=== PATIENT | female | born 1970 | race Caucasian/White ===

== ENCOUNTER 2017-07-29 21:24 | Emergency (ER) | payer OTHER ==
[2017-07-29 21:42] VITALS: BP 130/83
[2017-07-29] MEDS ORDERED: METOCLOPRAMIDE HCL ORAL SOLN 10 MG/10 ML UDCUP PO ONE (22:07)
[2017-07-29] MEDS ORDERED: LIDOCAINE 2% VISCOUS SOLN 20 ML UDCUP PO ONE (22:07)
[2017-07-29] MEDS ORDERED: SUCRALFATE 1 GM TABLET PO ONE (22:07)
[2017-07-29] MEDS ORDERED: MAG HYDROX/AL HYDROX/SIMETH SUSP 30 ML UDCUP PO ONE (22:07)
--- NOTE | 2017-07-29 22:17 | ER Document Report ---
ED General - General Chief Complaint: Chest Pain Stated Complaint: CHEST PAIN/DIFFICULTY BREATHING Time Seen by Provider: 07/29/17 21:52 Notes: Patient is a 47-year-old female that comes to the ED for chief complaint of symptoms of discomfort in her chest, upper abdomen, and throat that have been going on intermittently for the past 8 days, she states that occasionally she will have a coughing episode, she has vomited once or twice, she has discomfort that increases when she eats. She reports sensations of shortness of breath with the discomfort. She has been seen twice by her primary care and 4 times by [facility] over the past 8 days reportedly, she has had multiple laboratory evaluations and she has even had two CTA scans of the chest performed. She may really patient is already on Soma, oxycodone, and baclofen, she has been given medication is for her symptoms including Benadryl, Vistaril, Ativan, Protonix. She has had a gastric bypass and ventral hernia repair. Patient denies . She denies smoking, alcohol, [place] history. TRAVEL OUTSIDE OF THE [place] IN LAST 30 DAYS: No - Related Data Allergies/Adverse Reactions: meperidine HCl [From Demerol] Allergy (Severe, Verified 08/13/15 16:14) Anaphylaxis clindamycin [Clindamycin] Allergy (Intermediate, Verified 08/13/15 16:14) Rash, swelling Adhesives Allergy (Severe, Uncoded 08/13/15 16:14) Breaks down skin, itching Past Medical History - General Information source: Patient - Social History Smoking Status: Never Smoker Frequency of alcohol use: None Drug Abuse: None Lives with: Family Family History: Reviewed & Not Pertinent - Past Medical History Cardiac Medical History: Denies: Hx Coronary Artery Disease, Hx Heart Attack, Hx Hypertension Pulmonary Medical History: Denies: Hx Asthma, Hx Bronchitis, Hx COPD, Hx Pneumonia Neurological Medical History: Denies: Hx Cerebrovascular Accident, Hx Seizures Musculoskeltal Medical History: Reports Hx Arthritis - Lt hip Psychiatric Medical History: Reports: Hx Anxiety Past Surgical History: Reports: Hx Abdominal Surgery - tummy tuck and revision of tummy tuck, Hx Section - x5, Hx Cholecystectomy, Hx Gastric Bypass Surgery - Laparoscopic gastric bypass with Jeovany-en-Y in 2002, Hx Herniorrhaphy, Hx Orthopedic Surgery - Lumbar fusion. Spinal stimulator 02/18/2015., Hx Tubal Ligation - Immunizations Hx Diphtheria, Pertussis, Tetanus Vaccination: Yes - Unsure when Review of Systems - Review of Systems Constitutional: No symptoms reported EENT: See HPI Cardiovascular: See HPI Respiratory: See HPI Gastrointestinal: See HPI Genitourinary: No symptoms reported Female Genitourinary: No symptoms reported Musculoskeletal: No symptoms reported Skin: No symptoms reported Hematologic/Lymphatic: No symptoms reported Neurological/Psychological: No symptoms reported Physical Exam - Vital signs Vitals: Temp Pulse Resp BP Pulse Ox 98.1 F 82 18 130/83 H 98 07/29/17 21:41 07/29/17 21:41 07/29/17 21:41 07/29/17 21:41 07/29/17 21:41 Interpretation: Normal - General General appearance: Anxious - Patient sitting straight up in the bed, speaks anxiously In distress: None - HEENT Head: Normocephalic, Atraumatic Eyes: Normal Conjunctiva: Normal Extraocular movements intact: Yes Eyelashes: Normal Pupils: PERRL Nasal: Normal Mouth/Lips: Normal Mucous membranes: Normal Pharynx: Normal Neck: Normal - Respiratory Respiratory status: No respiratory distress. No: Respiratory distress, Labored , Tachypnea Chest status: Nontender. No: Tender Breath sounds: Normal. No: Decreased air movement, Wheezing Chest palpation: Normal - Cardiovascular Rhythm: Regular. No: Tachycardia Heart sounds: Normal auscultation, S1 appreciated, S2 appreciated Murmur: No Normal capillary refill: Yes - Abdominal Inspection: Normal Distension: No distension Bowel sounds: Normal Tenderness: Tender - There is very mild epigastric tenderness, remaining abdomen is soft and benign. No: Guarding - Back Back: Normal, Nontender. No: Tender - Extremities General upper extremity: Normal inspection, Nontender, Normal ROM, Normal strength General lower extremity: Normal inspection, Nontender, Normal ROM, Normal strength. No: Edema - Neurological Neuro grossly intact: Yes Cognition: Normal Orientation: AAOx4 [place] Coma Scale Eye Opening: Spontaneous [place] Coma Scale Verbal: Oriented [place] Coma Scale Motor: Obeys Commands [place] Coma Scale Total: 15 Speech: Normal Motor strength normal: LUE, RUE, LLE, RLE Sensory: Normal - Psychological Associated symptoms: Anxious - Anxious but she is able to be reassured - Skin Skin Temperature: Warm Skin Moisture: Dry Skin Color: Normal Course - Re-evaluation Re-evalutation: EKG sinus rhythm with no T-wave inversions or ST segment changes in consecutive leads. Chest x-ray is unremarkable. CBC, chemistry, cardiac enzymes unremarkable. Vital signs are unremarkable. Patient is anxious but able to be reassured. Because patient just had a CAT scan of the neck with contrast which was negative, just had two chest CTA imaging tests (which showed borderline pulmonary hypertension reportedly), no indication to perform CT imaging. Patient has had 8 days of symptoms like she has now. I gave patient a GI cocktail and Carafate and on reevaluation she states that she actually felt significant improvement. I do suspect this is a gastrointestinal source. This is patient's seventh evaluation in the past 8 days. Very low suspicion of acute etiology. [place] that she must go through them to see gastroenterology again. She states she was seeing him on Tuesday and have this performed. She will be provided medications, she requests a liquid form because it is easier to take and she states that large pills feel like they get stuck. She is able to eat and swallow fluids without difficulty although she reports discomfort. Discussed results in detail, recommended she return immediately for obstruction or any other concerning or worsening symptoms. Patient states understanding and agreement with plan. - Vital Signs Vital signs: Temp Pulse Resp BP Pulse Ox 98.1 F 82 29 H 130/83 H 100 07/29/17 21:41 07/29/17 21:41 07/30/17 00:25 07/29/17 21:41 07/30/17 00:25 - Laboratory Result Diagrams: 07/29/17 22:12 07/29/17 22:12 Laboratory results interpreted by me: 07/29/17 22:12 WBC 11.9 H Hgb 9.7 L Hct 31.0 L MCV 65 L MCH 20.4 L MCHC 31.3 L RDW 20.1 H Plt Count 454 H Discharge - Discharge Clinical Impression: Throat pain, Shortness of breath Chest pain Qualifiers: Chest pain type: unspecified Qualified Code(s): R07.9 - Chest pain, unspecified Condition: Stable Disposition: HOME, SELF-CARE Additional Instructions: Your workup tonight shows iron deficiency anemia with a hemoglobin of 9.7 but the remaining workup was unremarkable. Your previous workup, response to treatment, and symptoms are most suggestive of dysfunction with your upper gastrointestinal tract. Please follow-up within the next several days with gastroenterology for additional evaluation and management along with possible endoscopy. I recommend you take the Carafate liquid along with your prescribed medications. Return for any concerning symptoms including black stools, vomiting blood, inability to swallow, fever, passing out, or any other concerning or worsening Prescriptions: Metoclopramide HCl [Reglan Oral Soln 10 mg/10 ml Udcup] 10 mg PO Q6HP PRN #1 bottle PRN Reason: Sucralfate [Carafate Susp 1 Gm/10 Ml Udcup] 1 gm PO QID #1 bottle Forms: Return to Work
[2017-07-29 22:25] LABS: ABSOLUTE MONOCYTES (AUTO) 0.6 10^3/uL (0.1-1.4); ABSOLUTE NEUT (AUTO) 7.2 10^3/uL (1.7-8.2); BASOPHILS % (AUTO) 0.4 % (0-2); EOSINOPHILS % (AUTO) 0.1 % (0-6); HEMOGLOBIN 9.7 g/dL (12.0-15.5); LYMPHOCYTES % (AUTO) 33.7 % (13-45); MEAN CORPUSCULAR HEMOGLOBIN 20.4 pg (27.0-33.4); MEAN CORPUSCULAR HGB CONC 31.3 g/dL (32.0-36.0); MEAN CORPUSCULAR VOLUME 65 fl (80-97); MONOCYTES % (AUTO) 5.3 % (3-13); PLATELET COUNT 454 10^3/uL (150-450); RED BLOOD COUNT 4.75 10^6/uL (3.72-5.28); RED CELL DISTRIBUTION WIDTH 20.1 % (11.5-14.0); SEGMENTED NEUTROPHILS % (AUTO) 60.5 % (42-78); TOTAL CELLS COUNTED % (AUTO) 100 %; WHITE BLOOD COUNT 11.9 10^3/uL (4.0-10.5)
[2017-07-29 22:43] LABS: ALANINE AMINOTRANSFERASE 23 U/L (9-52); ALKALINE PHOSPHATASE 83 U/L (38-126); ANION GAP 9 (5-19); ASPARTATE AMINO TRANSFERASE 16 U/L (14-36); BILIRUBIN,DIRECT 0.2 mg/dL (0.0-0.4); BILIRUBIN,TOTAL 0.2 mg/dL (0.2-1.3); BLOOD UREA NITROGEN 9 mg/dL (7-20); CALCIUM 10.2 mg/dL (8.4-10.2); CARBON DIOXIDE 27 mmol/L (22-30); CHLORIDE 107 mmol/L (98-107); CREATINE KINASE 37 U/L (30-135); GLUCOSE 87 mg/dL (75-110); LIPASE 75.3 U/L (23-300); POTASSIUM 3.6 mmol/L (3.6-5.0); SODIUM 143.1 mmol/L (137-145)
[2017-07-29 22:55] LABS: CREATINE KINASE MB 0.67 ng/mL (<4.55)
[2017-07-29 22:58] LABS: TROPONIN I < 0.012 ng/mL
--- NOTE | 2017-07-29 22:58 | RADIOLOGY REPORT (SQ) ---
EXAM DESCRIPTION: XR CHEST 1 VIEW CLINICAL HISTORY: 47 years Female, chest pain COMPARISON: 11.30.15. NUMBER OF VIEWS/TECHNIQUE: 1/AP FINDINGS: Adequate lung volume, clear parenchyma, normal cardiac silhouette, and intact bony thorax. TENS leads left upper abdominal clips. IMPRESSION: No acute cardiopulmonary findings.
--- NOTE | 2017-07-30 08:46 | EKG REPORT ---
SEVERITY:- BORDERLINE ECG - SINUS RHYTHM PROBABLE LEFT ATRIAL ABNORMALITY : Confirmed by: August Arevalo MD 30-Jul-2017 08:46:17
== END 2017-07-29 23:49 | disposition home or self-care (01) ==
LOC: ER 21:24
DX: R07.9 Chest pain, unspecified (principal); R07.0 Pain in throat; R06.02 Shortness of breath; R11.10 Vomiting, unspecified; R10.816 Epigastric abdominal tenderness; R05 Cough; F41.9 Anxiety disorder, unspecified; Z98.84 Bariatric surgery status; Z98.890 Other specified postprocedural states; Z87.19 Personal history of other diseases of the digestive system; Z88.5 Allergy status to narcotic agent; Z88.1 Allergy status to other antibiotic agents; Z91.048 Other nonmedicinal substance allergy status; Z90.49 Acquired absence of other specified parts of digestive tract; Z98.51 Tubal ligation status
CPT/HCPCS: 93005; 99285; 36415; 82553; 82550; 83690; 85025; 80053; 84484; 71045; 93010; J3490; 94660

== ENCOUNTER → 2017-08-22 | Outpatient (CLI) | payer OTHER ==
--- NOTE | 2017-08-22 12:31 | RADIOLOGY REPORT (SQ) ---
EXAM DESCRIPTION: BARIUM SWALLOW ESOPHAGUS COMPLETED DATE/TIME: 08/22/2017 9:10 am REASON FOR STUDY: DIFFICULTY SWALLOWING, CHEST DISCOMFORT COMPARISON: None. TECHNIQUE: Under fluoroscopic guidance, patient ingested effervescent granules followed by thick and thin barium. Fluoroscopic spot images and routine radiographic images acquired and stored on PACS. 12 MM BARIUM TABLET GIVEN: Yes. No significant delay in passage. LIMITATIONS: None. FLUOROSCOPY TIME: FLUORO TIME: 2 MINUTES 7 SECONDS OF FLUOROSCOPY WAS USED. 11 images saved to PACS. FINDINGS: NEUROMUSCULAR COORDINATION OF SWALLOW: Normal. No aspiration. ESOPHAGEAL MOTILITY: Normal peristalsis. No esophageal spasm. ESOPHAGEAL MUCOSA: Mild mucosal thickening of the distal esophagus although this did not inhibit pass age of the 12 mm barium tablet. GASTRO-ESOPHAGEAL JUNCTION: No hiatal hernia seen. Mild gastroesophageal reflux seen. NON-GI TRACT STRUCTURES: No significant finding. OTHER: Patient is status post gastric bypass which appears intact and shows no signs of obstruction. IMPRESSION: MILD GASTROESOPHAGEAL REFLUX WITH MILD MUCOSAL THICKENING OF THE DISTAL ESOPHAGUS CONSIS TENT WITH REFLUX ESOPHAGITIS. COMMENT: Quality ID 145: Final reports for procedures using fluoroscopy that document radiation exp osure indices, or exposure time and number of fluorographic images (if radiation exposure indices are not available) TECHNICAL DOCUMENTATION: JOB ID: [id number] [employer]- All Rights Reserved Reading location - IP/workstation name: [email or web address] [email or web address] BEDS AT THE [facility]
== END ==
LOC: RAD 08:18
PROVIDERS: ATTEND Student in an Organized Health Care Education/Training Program
DX: K22.4 Dyskinesia of esophagus (principal); R13.10 Dysphagia, unspecified; K21.0 Gastro-esophageal reflux disease with esophagitis
CPT/HCPCS: 74220

== ENCOUNTER 2017-10-03 08:36 | Day surgery (SDC) | payer OTHER ==
[2017-10-03 09:28] LABS: HEMATOCRIT 41.2 % (36.0-47.0); HEMOGLOBIN 13.6 g/dL (12.0-15.5); MEAN CORPUSCULAR HEMOGLOBIN 26.7 pg (27.0-33.4); MEAN CORPUSCULAR HGB CONC 33.1 g/dL (32.0-36.0); MEAN CORPUSCULAR VOLUME 81 fl (80-97); PLATELET COUNT 255 10^3/uL (150-450); RED BLOOD COUNT 5.11 10^6/uL (3.72-5.28); RED CELL DISTRIBUTION WIDTH 25.8 % (11.5-14.0); WHITE BLOOD COUNT 6.9 10^3/uL (4.0-10.5)
[2017-10-03 09:31] LABS: INTERNATIONAL RATION (INR) 0.89; PROTHROMBIN TIME 12.5 SEC (11.4-15.4)
[2017-10-03 09:32] LABS: PARTIAL THROMBOPLASTIN TIME 30.2 SEC (23.5-35.8)
[2017-10-03 09:49] LABS: BLOOD UREA NITROGEN 17 mg/dL (7-20)
[2017-10-03] MEDS ORDERED: LIDOCAINE 1% INJ-PF (10 MG/ML) 30 ML SDV ONE (10:01)
--- NOTE | 2017-10-03 11:34 | RADIOLOGY REPORT (SQ) ---
EXAM DESCRIPTION: LUMBAR PUNCTURE; FLUORO/NEEDLE PLACEMENT/SPINE COMPLETED DATE/TIME: 10/03/2017 11:10 am REASON FOR STUDY: MS G35 MULTIPLE SCLEROSIS COMPARISON: Lumbar spine films 09/08/2015 CT lumbar spine 08/12/2014 FLUOROSCOPY TIME: 50 seconds 6 digital radiographic images images saved to PACS. TECHNIQUE: Fluoroscopic guided lumbar puncture. LIMITATIONS: None. PROCEDURE: After written consent and assessment were obtained, the patient was brought into the fluo roscopy room and placed prone on the table. The patient's lower back was prepped in a sterile fashio n and an entry site was selected under live fluoroscopic guidance. The entry site was anesthetized wi th 1% lidocaine. A 22 gauge needle was advanced through the skin and into the thecal sac at the left paracentral L1-2 level. After approximately 8 ml was drained, the needle was removed and a sterile b andage was placed of the site. Specimens were sent to the lab for testing. A fluoroscopic spot imag e was saved to PACS confirming level access. FINDINGS: Clear CSF Opening pressure less than 15 cm of water. Testing pending on the cerebrospinal fluid. IMPRESSION: Lumbar puncture under fluoroscopy. No immediate complication. COMMENT: Patient medication list reviewed: Yes- Quality ID# 130:Eligible professional attests to doc umenting in the medical record they obtained, updated, or reviewed the patient's current medications. . Quality ID 145: Final reports for procedures using fluoroscopy that document radiation exposure deb livan, or exposure time and number of fluorographic images (if radiation exposure indices are not avail able) TECHNICAL DOCUMENTATION: JOB ID: [id number] [employer]- All Rights Reserved Reading location - IP/workstation name: [facility]-[email or web address]
--- NOTE | 2017-10-03 11:34 | RADIOLOGY REPORT (SQ) ---
EXAM DESCRIPTION: LUMBAR PUNCTURE; FLUORO/NEEDLE PLACEMENT/SPINE COMPLETED DATE/TIME: 10/03/2017 11:10 am REASON FOR STUDY: MS G35 MULTIPLE SCLEROSIS COMPARISON: Lumbar spine films 09/08/2015 CT lumbar spine 08/12/2014 FLUOROSCOPY TIME: 50 seconds 6 digital radiographic images images saved to PACS. TECHNIQUE: Fluoroscopic guided lumbar puncture. LIMITATIONS: None. PROCEDURE: After written consent and assessment were obtained, the patient was brought into the fluo roscopy room and placed prone on the table. The patient's lower back was prepped in a sterile fashio n and an entry site was selected under live fluoroscopic guidance. The entry site was anesthetized wi th 1% lidocaine. A 22 gauge needle was advanced through the skin and into the thecal sac at the left paracentral L1-2 level. After approximately 8 ml was drained, the needle was removed and a sterile b andage was placed of the site. Specimens were sent to the lab for testing. A fluoroscopic spot imag e was saved to PACS confirming level access. FINDINGS: Clear CSF Opening pressure less than 15 cm of water. Testing pending on the cerebrospinal fluid. IMPRESSION: Lumbar puncture under fluoroscopy. No immediate complication. COMMENT: Patient medication list reviewed: Yes- Quality ID# 130:Eligible professional attests to doc umenting in the medical record they obtained, updated, or reviewed the patient's current medications. . Quality ID 145: Final reports for procedures using fluoroscopy that document radiation exposure deb livan, or exposure time and number of fluorographic images (if radiation exposure indices are not avail able) TECHNICAL DOCUMENTATION: JOB ID: [id number] [employer]- All Rights Reserved Reading location - IP/workstation name: [email or web address]
[2017-10-03 11:50] LABS: APPEARANCE ALL TUBES CLEAR; COLOR ALL TUBES COLORLESS; CSF TOTAL VOLUME 7.5 CC; CSF TUBE NUMBER 3; RED BLOOD CELL,CSF 10 /uL (0-10); VOLUME TUBE 3 1.5 CC
[2017-10-03 11:51] LABS: WHITE BLOOD CELL,CSF 1 /uL (0-5)
[2017-10-03 11:54] LABS: GLUCOSE,CSF 65 mg/dL (40-70); PROTEIN,CSF 35 mg/dL (12-60)
[2017-10-03 13:35] VITALS: BP 106/72
[2017-10-07 19:35] LABS: ALBUMIN SERUM 3.8 g/dL (3.5-5.5); CSF IGG INDEX 0.5 (0.0-0.7); IGG SYNTHESIS RATE CSF -4.9 mg/day (-9.9 TO +3); IGG/ALBUMIN RATIO CSF 0.16 (0.00-0.25); IMMUNOGLOBULIN G CSF 1.4 mg/dL (0.0-8.6)
== END 2017-10-03 13:20 | disposition home or self-care (01) ==
LOC: RAD 08:36
PROVIDERS: ATTEND Specialist
DX: G35 Multiple sclerosis (principal); Z88.1 Allergy status to other antibiotic agents; Z88.8 Allergy status to other drugs, medicaments and biological substances
CPT/HCPCS: 36415; 87070; 87205; 84520; 82565; 83916 ×2; 85027; 85610; 85730; 89050; 82945; 84157; 82784; 77003; 62270; J3490

== ENCOUNTER 2018-01-03 12:52 | Day surgery (SDC) | payer OTHER ==
[2017-12-27 11:24] LABS: HEMATOCRIT 38.7 % (36.0-47.0); HEMOGLOBIN 12.8 g/dL (12.0-15.5); MEAN CORPUSCULAR HEMOGLOBIN 28.6 pg (27.0-33.4); MEAN CORPUSCULAR HGB CONC 33.1 g/dL (32.0-36.0); MEAN CORPUSCULAR VOLUME 86 fl (80-97); PLATELET COUNT 272 10^3/uL (150-450); RED BLOOD COUNT 4.48 10^6/uL (3.72-5.28); RED CELL DISTRIBUTION WIDTH 15.4 % (11.5-14.0); WHITE BLOOD COUNT 5.2 10^3/uL (4.0-10.5)
[2017-12-27 11:31] LABS: PROTHROMBIN TIME 12.6 SEC (11.4-15.4)
--- NOTE | 2017-12-27 11:49 | RADIOLOGY REPORT (SQ) ---
EXAM DESCRIPTION: CHEST PA/LATERAL COMPLETED DATE/TIME: 12/27/2017 11:06 am REASON FOR STUDY: PRE-OP COMPARISON: 07/29/2017. TECHNIQUE: Frontal and lateral radiographic views of the chest acquired. NUMBER OF VIEWS: Two view. LIMITATIONS: None. FINDINGS: LUNGS AND PLEURA: No opacities, masses or pneumothorax. No pleural effusion. MEDIASTINUM AND HILAR STRUCTURES: No masses or contour abnormalities. HEART AND VASCULAR STRUCTURES: Heart normal size. No evidence for failure. BONES: No acute findings. HARDWARE: Thoracic spinal leads in place projecting to T7. OTHER: No other significant finding. IMPRESSION: NO SIGNIFICANT RADIOGRAPHIC FINDING IN THE CHEST. TECHNICAL DOCUMENTATION: JOB ID: [id number] [employer]- All Rights Reserved Reading location - IP/workstation name: [email or web address]
[2017-12-27 12:00] LABS: ANION GAP 5 (5-19); BLOOD UREA NITROGEN 11 mg/dL (7-20); CALCIUM 9.1 mg/dL (8.4-10.2); CARBON DIOXIDE 29 mmol/L (22-30); CHLORIDE 106 mmol/L (98-107); GLUCOSE 97 mg/dL (75-110); POTASSIUM 4.5 mmol/L (3.6-5.0)
[2017-12-27 12:23] LABS: APPEARANCE,URINE SLIGHTLY-CLOUDY; BILIRUBIN,URINE NEGATIVE (NEGATIVE); COLOR,URINE YELLOW; GLUCOSE, URINE NEGATIVE (NEGATIVE)
[2017-12-27 12:24] LABS: ADD MANUAL MICROSCOPIC YES; KETONES,URINE NEGATIVE (NEGATIVE); LEUKOCYTE ESTERASE,URINE NEGATIVE (NEGATIVE); NITRITE,URINE NEGATIVE (NEGATIVE); PROTEIN,URINE NEGATIVE (NEGATIVE); URINE SPECIFIC GRAVITY 1.018; UROBILINOGEN,URINE NEGATIVE mg/dL (<2.0)
[2017-12-27 12:25] LABS: BACTERIA,URINE TRACE /HPF
--- NOTE | 2017-12-27 19:52 | EKG REPORT ---
SEVERITY:- NORMAL ECG - SINUS RHYTHM : Confirmed by: Marcy Lau MD 27-Dec-2017 19:52:12
[~2018-01-03 12:52] MED LIST: CEFAZOLIN 1 GM/D5W RTU 1 GM/50 ML RTUPB IV ONE; CEFAZOLIN 1 GM/D5W RTU 1 GM/50 ML RTUPB IV SCH; LACTATED RINGERS 1000 ML IV PRN; LIDOCAINE 0.5% INJ-PF (5 MG/ML) 50 ML SDV SUBCUT PRN
[2018-01-03] MEDS ORDERED: MIDAZOLAM 2 MG/2 ML INJ ONE (14:23)
[2018-01-03] MEDS ORDERED: LIDOCAINE 1% INJ-PF (10 MG/ML) 30 ML SDV ONE (14:23)
[2018-01-03] MEDS ORDERED: SODIUM BICARBONATE 8.4% INJ 50 MEQ/50 ML DISP.SYRIN ONE (14:23)
[2018-01-03] MEDS ORDERED: ONDANSETRON HCL INJ/PF 4 MG/2 ML SDV ONE (14:23)
[2018-01-03] MEDS ORDERED: PROPOFOL INJ 200 MG/20 ML VIAL IV ONE (14:23)
[2018-01-03] MEDS ORDERED: BUPIVACAINE HCL 0.25% /EPINEPHRINE INJ/PF 30 ML SDV ONE (14:23)
[2018-01-03] MEDS ORDERED: ONDANSETRON HCL INJ/PF 4 MG/2 ML SDV IV PRN ×3 (14:39→16:21)
[2018-01-03] MEDS ORDERED: DIPHENHYDRAMINE HCL 50 MG/ML VIAL IV PRN ×2 (14:39→14:55)
[2018-01-03] MEDS ORDERED: MEPERIDINE HCL/PF INJ 25 MG/1 ML DISP.SYRIN IV PRN (14:39)
[2018-01-03] MEDS ORDERED: MORPHINE SULFATE 10 MG/ML INJ IV PRN ×2 (14:39→14:55)
[2018-01-03] MEDS ORDERED: PROMETHAZINE HCL INJ 25 MG/1 ML VIAL IV PRN ×4 (14:39→14:55)
--- NOTE | 2018-01-03 16:10 | RADIOLOGY REPORT (SQ) ---
EXAM DESCRIPTION: SPINE SINGLE VIEW; NO CHG FLUORO COMPLETED DATE/TIME: 01/03/2018 3:50 pm REASON FOR STUDY: LUMBAR SPINAL STIMULATOR REMOVAL G89.4 CHRONIC PAIN SYNDROME COMPARISON: None. FLUOROSCOPY TIME: Less than 1 minute. Spot images saved to PACS. TECHNIQUE: Intra-operative images acquired during surgical procedure to evaluate progress. NUMBER OF IMAGES: 2 LIMITATIONS: None. FINDINGS: Fluoroscopy was provided for intraoperative procedure. Refer to the operative report for further discussion. IMPRESSION: IMAGE(S) OBTAINED DURING PROCEDURE. COMMENT: Quality ID 145: Final reports for procedures using fluoroscopy that document radiation exp osure indices, or exposure time and number of fluorographic images (if radiation exposure indices are not available) Please consult full operative report of the attending physician for description of the procedure. TECHNICAL DOCUMENTATION: JOB ID: [id number] [employer]- All Rights Reserved Reading location - IP/workstation name: [email or web address]
--- NOTE | 2018-01-03 16:10 | RADIOLOGY REPORT (SQ) ---
EXAM DESCRIPTION: SPINE SINGLE VIEW; NO CHG FLUORO COMPLETED DATE/TIME: 01/03/2018 3:50 pm REASON FOR STUDY: LUMBAR SPINAL STIMULATOR REMOVAL G89.4 CHRONIC PAIN SYNDROME COMPARISON: None. FLUOROSCOPY TIME: Less than 1 minute. Spot images saved to PACS. TECHNIQUE: Intra-operative images acquired during surgical procedure to evaluate progress. NUMBER OF IMAGES: 2 LIMITATIONS: None. FINDINGS: Fluoroscopy was provided for intraoperative procedure. Refer to the operative report for further discussion. IMPRESSION: IMAGE(S) OBTAINED DURING PROCEDURE. COMMENT: Quality ID 145: Final reports for procedures using fluoroscopy that document radiation exp osure indices, or exposure time and number of fluorographic images (if radiation exposure indices are not available) Please consult full operative report of the attending physician for description of the procedure. TECHNICAL DOCUMENTATION: JOB ID: [id number] [employer]- All Rights Reserved Reading location - IP/workstation name: [email or web address]
[2018-01-03] MEDS ORDERED: CEFAZOLIN INJ 1 GM VIAL ONE (16:19)
[2018-01-03] MEDS ORDERED: OXYCODONE HCL IR 5 MG TABLET PO PRN (16:20)
[2018-01-03] MEDS: HYDROMORPHONE HCL INJ/PF 2 MG/ML AMPULE ONE ×2 (16:25→16:35)
[2018-01-03] MEDS ORDERED: OXYCODONE HCL SR 10 MG TABLET PO ONE (17:15)
[2018-01-03] MEDS ORDERED: OXYCODONE HCL IR 5 MG TABLET ONE (17:15)
[2018-01-03] MEDS ORDERED: HYDROMORPHONE HCL INJ/PF 2 MG/ML AMPULE IV PRN (17:44)
[2018-01-03 18:21] VITALS: BP 110/70
[2018-01-04] MEDS ORDERED: CEFAZOLIN 1 GM/D5W RTU 1 GM/50 ML RTUPB IV SCH (02:00)
--- NOTE | 2018-02-02 12:37 | OPERATIVE REPORT E ---
Operative Report NAME: TOMY LEON : 1970 AGE: 47Y DATE OF SURGERY: 01/03/2018 ROOM: PREOPERATIVE DIAGNOSIS: FAILURE OF IMPLANTABLE SPINAL CORD STIMULATOR. POSTOPERATIVE DIAGNOSIS: FAILURE OF IMPLANTABLE SPINAL CORD STIMULATOR. OPERATION: Removal of implantable pulse generator and dual Octrode leads from spinal cord stimulator. SURGEON: EDY KRUGER M.D. ANESTHESIA: MAC with sedation. INTRAVENOUS ANTIBIOTICS: 1 gram Ancef given perioperatively. INTRAVENOUS FLUIDS: 500 mL of balanced crystalloid solution. FINDINGS: Successful removal of all components of previously implanted spinal cord stimulator system including anchors, leads, and implantable pulse generator. ESTIMATED BLOOD LOSS: 10 mL. COMPLICATIONS: None. OPERATIVE INDICATIONS: This patient is a 47-year-old female with previously implanted spinal cord stimulator system. The patient has not had good stimulation of late and has been getting stimulation in the ribs. Patient needs updated imaging and MRIs and her current symptom is MRI incompatible. As such, decision was made to explant the system, especially given that she is not currently using her spinal cord stimulator system and has not been for the past year. All risks and benefits were discussed with the patient including but not limited to bleeding, bruising, infection, injury to nerves, arteries, veins, loss of bowel or bladder function, paralysis, and potentially even . The patient agreed to proceed. PROCEDURE: Patient was accompanied by Anesthesia to the operative suite were she was placed in prone position. All pressure points were protected and padded. Standard ASA lines and monitors were applied. The patient was prepped and draped in sterile fashion using chlorhexidine gluconate solution and draped with an Ioban drape. The previously marked incision sites in the midline and the buttock were marked and anesthetized with buffered 1% lidocaine using a 25-gauge needle. Deeper tissues were infiltrated with 0.25% bupivacaine. Incision was made using a 15-blade scalpel over both sites. The batter pocket was easily visualized and the leads were disconnected using an hex-wrench. A midline incision was likewise dissected by using blunt and Bovie dissection. Adequate hemostasis was ensured. The anchors for the spinal cord stimulator leads were exposed and removed, taking care to remove all nonabsorbable suture material. The leads were notably intact upon removal. The entirety of the spinal cord stimulator system was explanted. The incision sites were copiously irrigated with dilute Betadine solution. Subsequently, the incisions were closed in interrupted fashion. The midline was closed in 2 layers using 3-0 Vicryl and the skin was then closed with stefan. The buttock incision was likewise closed in a single layer with interrupted 3-0 Vicryl suture and inverted vertical mattress fashion and the skin again closed with stefan. Dressings were placed. The patient was accompanied to the Postanesthesia recovery Unit in stable condition. She will return for follow-up in 1 day for wound check. DICTATING PHYSICIAN: EDY KRUGER M.D. [id number] PHY#: [id number] ID: [id number] JOB#: [id number] ACCT: [id number] cc:EDY KRUGER M.D. >
== END 2018-01-03 18:20 | disposition home or self-care (01) ==
LOC: OROUT 12:52
PROVIDERS: ATTEND Pain Medicine Interventional Pain Medicine
DX: G89.4 Chronic pain syndrome (principal); M54.16 Radiculopathy, lumbar region; M96.1 Postlaminectomy syndrome, not elsewhere classified; M54.17 Radiculopathy, lumbosacral region; M46.1 Sacroiliitis, not elsewhere classified; M62.9 Disorder of muscle, unspecified; M54.6 Pain in thoracic spine; M54.5 Low back pain; F45.42 Pain disorder with related psychological factors; F32.9 Major depressive disorder, single episode, unspecified; J45.909 Unspecified asthma, uncomplicated; D64.9 Anemia, unspecified; E04.1 Nontoxic single thyroid nodule; Z79.891 Long term (current) use of opiate analgesic; Z88.5 Allergy status to narcotic agent; Z87.892 Personal history of anaphylaxis; Z79.899 Other long term (current) drug therapy; Z79.51 Long term (current) use of inhaled steroids
CPT/HCPCS: 93005; 36415; 85027; 85610; 85730; 81025; 80048; 81001; 71046; 72020; 93010; 63661; 63688; J2250; J3490 ×3; J0690 ×2; J1170; J2405; J2704; 1936

== ENCOUNTER 2019-09-07 06:41 | Emergency (ER) | payer OTHER ==
[2019-09-07] MEDS ORDERED: NORMAL SALINE 1000 ML 1,000 ML IV ONE (07:04)
[2019-09-07] MEDS ORDERED: LORAZEPAM INJ 2 MG/1 ML VIAL IV ONE (07:09)
[2019-09-07 07:11] LABS: ABSOLUTE BASOPHILS # (AUTO) 0.1 10^3/uL (0.0-0.2); ABSOLUTE EOSINOPHILS # (AUTO) 0.4 10^3/uL (0.0-0.6); ABSOLUTE LYMPHOCYTES (AUTO) 1.1 10^3/uL (0.5-4.7); ABSOLUTE MONOCYTES (AUTO) 0.6 10^3/uL (0.1-1.4); EOSINOPHILS % (AUTO) 7.9 % (0-6); HEMATOCRIT 40.7 % (36.0-47.0); HEMOGLOBIN 13.7 g/dL (12.0-15.5); LYMPHOCYTES % (AUTO) 20.9 % (13-45); MEAN CORPUSCULAR HEMOGLOBIN 30.2 pg (27.0-33.4); MEAN CORPUSCULAR HGB CONC 33.7 g/dL (32.0-36.0); MEAN CORPUSCULAR VOLUME 90 fl (80-97); MONOCYTES % (AUTO) 11.7 % (3-13); PLATELET COUNT 348 10^3/uL (150-450); RED BLOOD COUNT 4.54 10^6/uL (3.72-5.28); RED CELL DISTRIBUTION WIDTH 17.7 % (11.5-14.0); SEGMENTED NEUTROPHILS % (AUTO) 58.5 % (42-78); TOTAL CELLS COUNTED % (AUTO) 100 %; WHITE BLOOD COUNT 5.1 10^3/uL (4.0-10.5)
[2019-09-07 07:16] LABS: INTERNATIONAL RATION (INR) 1.01; PROTHROMBIN TIME 13.3 SEC (11.4-15.4)
[2019-09-07 07:17] LABS: PARTIAL THROMBOPLASTIN TIME 30.9 SEC (23.5-35.8)
[2019-09-07 07:27] LABS: ALBUMIN 4.1 g/dL (3.5-5.0); ALKALINE PHOSPHATASE 103 U/L (38-126); ANION GAP 5 (5-19); ASPARTATE AMINO TRANSFERASE 31 U/L (14-36); BILIRUBIN,TOTAL 0.4 mg/dL (0.2-1.3); BLOOD UREA NITROGEN 15 mg/dL (7-20); CALCIUM 9.8 mg/dL (8.4-10.2); CARBON DIOXIDE 28 mmol/L (22-30); CHLORIDE 107 mmol/L (98-107); GLUCOSE 93 mg/dL (75-110); POTASSIUM 4.4 mmol/L (3.6-5.0); TOTAL PROTEIN 7.9 g/dL (6.3-8.2)
[2019-09-07 07:28] LABS: ACETAMINOPHEN < 10 ug/mL (10-30); ALCOHOL < 10 mg/dL (NONE DETECTED)
[2019-09-07 07:37] LABS: NT PRO BNP 92 pg/mL (<125)
[2019-09-07 07:38] LABS: TROPONIN I < 0.012 ng/mL
--- NOTE | 2019-09-07 07:40 | RADIOLOGY REPORT (SQ) ---
EXAM: XR Chest, 1 View EXAM DATE/TIME: 09/07/2019 07:16 CLINICAL HISTORY: The patient is 49 years old and is Female; sobr TECHNIQUE: Frontal view of the chest. COMPARISON: Chest radiograph from 12/27/2017 FINDINGS: LUNGS: The right hemidiaphragm is elevated. The lungs are hypoinflated. There are mild bibasilar densities suggesting atelectasis. There is also mild diffuse interstitial prominence. PLEURAL SPACE: Small left pleural effusion not excluded. No obvious pneumothorax. HEART: Enlarged cardiac silhouette. MEDIASTINUM: Unremarkable. BONES/JOINTS: No acute osseous findings. IMPRESSION: Low lung volumes with minimal bibasilar atelectasis. Superimposed mild interstitial edema not excluded.
[2019-09-07 07:41] LABS: APPEARANCE,URINE CLEAR; BILIRUBIN,URINE NEGATIVE (NEGATIVE); COLOR,URINE YELLOW; GLUCOSE, URINE NEGATIVE (NEGATIVE); KETONES,URINE NEGATIVE (NEGATIVE); LEUKOCYTE ESTERASE,URINE NEGATIVE (NEGATIVE); NITRITE,URINE NEGATIVE (NEGATIVE); PROTEIN,URINE NEGATIVE (NEGATIVE); URINE SPECIFIC GRAVITY 1.009; UROBILINOGEN,URINE NEGATIVE mg/dL (<2.0)
[2019-09-07 07:53] LABS: URINE AMPHETAMINES SCREEN NEGATIVE; URINE BARBITURATES SCREEN NEGATIVE; URINE BENZODIAZEPINES SCREEN NEGATIVE; URINE COCAINE SCREEN NEGATIVE; URINE MARIJUANA (THC) SCREEN NEGATIVE; URINE METHADONE SCREEN NEGATIVE; URINE PHENCYCLIDINE SCREEN NEGATIVE
[2019-09-07 08:01] LABS: VENOUS BLOOD HCO3 25.7 mmol/L (20-32); VENOUS BLOOD PCO2 51.4 mmHg (35-63); VENOUS BLOOD PH 7.32 (7.30-7.42)
--- NOTE | 2019-09-07 08:19 | RADIOLOGY REPORT (SQ) ---
EXAM DESCRIPTION: CT HEAD WITHOUT IMAGES COMPLETED DATE/TIME: 09/07/2019 8:07 am REASON FOR STUDY: seizure activity COMPARISON: None. TECHNIQUE: Axial images acquired through the brain without intravenous contrast. Images reviewed wi th bone, brain and subdural windows. Additional sagittal and coronal reconstructions were generated. Images stored on PACS. All CT scanners at this facility use dose modulation, iterative reconstruction, and/or weight based d osing when appropriate to reduce radiation dose to as low as reasonably achievable (ALARA). [facility]: Dose Right [facility]: CareDose [facility]: Dose Right [facility]: Teradose 4D [facility]: Smart BBE RADIATION DOSE: CT Rad equipment meets quality standard of care and radiation dose reduction techniq ues were employed. CTDIvol: 53.2 mGy. DLP: 1017 mGy-cm. mGy. LIMITATIONS: None. FINDINGS: VENTRICLES: Normal size and contour. CEREBRUM: No masses. No hemorrhage. No midline shift. No evidence for acute infarction. Normal gra y/white matter differentiation. No areas of low density in the white matter. CEREBELLUM: No masses. No hemorrhage. No alteration of density. No evidence for acute infarction. EXTRAAXIAL SPACES: No fluid collections. No masses. ORBITS AND GLOBE: No intra- or extraconal masses. Normal contour of globe without masses. CALVARIUM: No fracture. PARANASAL SINUSES: No fluid or mucosal thickening. SOFT TISSUES: No mass or hematoma. OTHER: No other significant finding. IMPRESSION: NORMAL BRAIN CT WITHOUT CONTRAST. EVIDENCE OF ACUTE STROKE: NO. COMMENT: Quality ID # 436: Final reports with documentation of one or more dose reduction techniques (e.g., Automated exposure control, adjustment of the mA and/or kV according to patient size, use of iterative reconstruction technique) TECHNICAL DOCUMENTATION: JOB ID: [id number] [employer]- All Rights Reserved Reading location - IP/workstation name: [email or web address]
[2019-09-07] MEDS ORDERED: ACETAMINOPHEN 325 MG TABLET PO ONE (11:05)
[2019-09-07 13:13] LABS: ABSOLUTE EOSINOPHILS # (AUTO) 0.3 10^3/uL (0.0-0.6); ABSOLUTE LYMPHOCYTES (AUTO) 0.9 10^3/uL (0.5-4.7); ABSOLUTE MONOCYTES (AUTO) 0.4 10^3/uL (0.1-1.4); ABSOLUTE NEUT (AUTO) 2.1 10^3/uL (1.7-8.2); EOSINOPHILS % (AUTO) 8.5 % (0-6); HEMATOCRIT 34.6 % (36.0-47.0); HEMOGLOBIN 11.8 g/dL (12.0-15.5); LYMPHOCYTES % (AUTO) 23.7 % (13-45); MEAN CORPUSCULAR HEMOGLOBIN 30.7 pg (27.0-33.4); MEAN CORPUSCULAR HGB CONC 34.2 g/dL (32.0-36.0); MEAN CORPUSCULAR VOLUME 90 fl (80-97); MONOCYTES % (AUTO) 11.2 % (3-13); PLATELET COUNT 321 10^3/uL (150-450); RED BLOOD COUNT 3.86 10^6/uL (3.72-5.28); RED CELL DISTRIBUTION WIDTH 17.2 % (11.5-14.0); SEGMENTED NEUTROPHILS % (AUTO) 55.6 % (42-78); TOTAL CELLS COUNTED % (AUTO) 100 %; WHITE BLOOD COUNT 3.8 10^3/uL (4.0-10.5)
--- NOTE | 2019-09-07 14:14 | RADIOLOGY REPORT (SQ) ---
EXAM DESCRIPTION: CT CHEST WITH IMAGES COMPLETED DATE/TIME: 09/07/2019 1:48 pm REASON FOR STUDY: increased interstitial markings/elevated right giovanna COMPARISON: None. TECHNIQUE: CT scan of the chest performed using helical scanning technique with dynamic intravenous contrast injection. Images reviewed with lung, soft tissue and bone windows. Reconstructed coronal and sagittal MPR and MIP images reviewed. All images stored on PACS. All CT scanners at this facility use dose modulation, iterative reconstruction, and/or weight based d osing when appropriate to reduce radiation dose to as low as reasonably achievable (ALARA). [facility]: Dose Right [facility]: CareDose [facility]: Dose Right [facility]: Teradose 4D [facility]: [employer] CONTRAST TYPE AND DOSE: 94 mL Omnipaque 350- low osmolar. RENAL FUNCTION: BUN 15; creatinine 1.0 RADIATION DOSE: . LIMITATIONS: None. FINDINGS: LUNGS AND PLEURA: No opacities, nodules, masses. No pneumothorax. No effusions. HILAR AND MEDIASTINAL STRUCTURES: No identified masses or abnormal nodes. HEART AND VASCULAR STRUCTURES: No aneurysm or dissection. No central pulmonary emboli. No pericardi al effusion. HARDWARE: None in the chest. UPPER ABDOMEN: See separate report of the CT of the abdomen. THYROID AND OTHER SOFT TISSUES: No masses. No adenopathy. BONES: No significant finding. OTHER: No other significant finding. IMPRESSION: NORMAL CT OF THE CHEST WITH IV CONTRAST. TECHNICAL DOCUMENTATION: JOB ID: [id number] Quality ID # [id number]: Final reports with documentation of one or more dose reduction techniques (e.g., Au tomated exposure control, adjustment of the mA and/or kV according to patient size, use of iterative reconstruction technique) 2010 [employer]- All Rights Reserved Reading location - IP/workstation name: [email or web address]
--- NOTE | 2019-09-07 14:15 | RADIOLOGY REPORT (SQ) ---
EXAM DESCRIPTION: CT ABD/PELVIS WITH IV ONLY IMAGES COMPLETED DATE/TIME: 09/07/2019 1:48 pm REASON FOR STUDY: abdominal distension/ crohns disease COMPARISON: 04/24/2015 TECHNIQUE: CT scan of the abdomen and pelvis performed using helical scanning technique with dynamic intravenous contrast injection. No oral contrast. Images reviewed with lung, soft tissue, and bone windows. Reconstructed coronal and sagittal MPR images reviewed. Delayed images for evaluation of the urinary system also acquired. All images stored on PACS. All CT scanners at this facility use dose modulation, iterative reconstruction, and/or weight based d osing when appropriate to reduce radiation dose to as low as reasonably achievable (ALARA). [facility]: Dose Right [facility]: CareDose [facility]: Dose Right [facility]: Teradose 4D [facility]: [employer] CONTRAST TYPE AND DOSE: 94 mL Omnipaque 350- low osmolar. RENAL FUNCTION: BUN 15; creatinine 1.0 RADIATION DOSE: CT Rad equipment meets quality standard of care and radiation dose reduction techniq ues were employed. CTDIvol: 19.9 - 20.8 mGy. DLP: 2474 mGy-cm.. LIMITATIONS: None. FINDINGS: LOWER CHEST: See separate report of the CT of the chest. LIVER: Normal size. No masses. No dilated ducts. SPLEEN: Normal size. No focal lesions. PANCREAS: No masses. No significant calcifications. No adjacent inflammation or peripancreatic fluid collections. Pancreatic duct not dilated. GALLBLADDER: Surgically absent. ADRENAL GLANDS: No significant masses or asymmetry. RIGHT KIDNEY AND URETER: No solid masses. No significant calcifications. No hydronephrosis or hyd roureter. LEFT KIDNEY AND URETER: No solid masses. No significant calcifications. No hydronephrosis or hydr oureter. AORTA AND VESSELS: No aneurysm. No dissection. Renal arteries, SMA, celiac without stenosis. RETROPERITONEUM: No retroperitoneal adenopathy, hemorrhage or masses. BOWEL AND PERITONEAL CAVITY: Status post bariatric surgery. The bowel is otherwise unremarkable. No focal inflammatory changes. No mass. APPENDIX: Normal. PELVIS: No mass. No free fluid. The bladder is decompressed with a Scott catheter. ABDOMINAL WALL: No masses. No hernias. BONES: Status post L4 through S1 spinal fusion without evidence of hardware complication. Stable gra de 1 anterolisthesis of L5 relative to S1. OTHER: No other significant finding. IMPRESSION: No evidence of acute intra-abdominal infectious/inflammatory process. Stable chronic an d incidental findings as detailed above. TECHNICAL DOCUMENTATION: JOB ID: [id number] Quality ID # [id number]: Final reports with documentation of one or more dose reduction techniques (e.g., Au tomated exposure control, adjustment of the mA and/or kV according to patient size, use of iterative reconstruction technique) 2010 [employer]- All Rights Reserved Reading location - IP/workstation name: [email or web address]
--- NOTE | 2019-09-07 14:40 | ER Document Report ---
Entered by CAROLINE REYES SCRIBE 09/07/19 0707 Acting as scribe for:VY ISAAC MD ED General - General Chief Complaint: Probable Seizure Stated Complaint: UNRESPONSIVE Time Seen by Provider: 09/07/19 06:51 Primary Care Provider: ALDA RODRIGUEZ FNP-C [NO LOCAL MD] - Follow up as needed Information source: Emergency Med Personnel, [facility] Records Notes: This 49 year old female patient presents to the emergency department today with arrival by EMS for a possible seizure. EMS reports the patient has a history of possible seizures but has not been diagnosed. 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 EMS states she did not bite her tongue, but it fell back in her throat. Patient is nonverbal and answers yes or no questions by shaking her head. Patient denies chest pain or a headache by shaking her head for no. TRAVEL OUTSIDE OF THE [place] IN LAST 30 DAYS: No - Related Data Allergies/Adverse Reactions: meperidine HCl [From Demerol] Allergy (Severe, Verified 01/03/18 14:03) Anaphylaxis clindamycin [Clindamycin] Allergy (Intermediate, Verified 01/03/18 14:03) Rash, swelling alcohol [From Mastisol Liquid Adhesive] Allergy (Verified 01/03/18 14:03) Urticaria gum mastic [From Mastisol Liquid Adhesive] Allergy (Verified 01/03/18 14:03) Urticaria methyl salicylate [From Mastisol Liquid Adhesive] Allergy (Verified 01/03/18 14:03) Urticaria storax [From Mastisol Liquid Adhesive] Allergy (Verified 01/03/18 14:03) Urticaria adhesive tape Adverse Reaction (Intermediate, Verified 01/03/18 14:03) ITCHING; BREAKS DOWN SKIN Past Medical History - General Information source: Emergency Med Personnel, [facility] Records - Social History Smoking Status: Unknown if Ever Smoked Family History: Reviewed & Not Pertinent Psychiatric Medical History: Reports: Hx Anxiety, Hx Attention Deficit Hyperactivity Disorder Past Surgical History: Reports: Hx Abdominal Surgery - tummy tuck and revision of tummy tuck, Hx Section - x5, Hx Cholecystectomy, Hx Gastric Bypass Surgery - Laparoscopic gastric bypass with Jeovany-en-Y in 2002, Hx Herniorrhaphy, Hx Orthopedic Surgery - Lumbar fusion. Spinal stimulator 02/18/2015., Hx Tubal Ligation - Immunizations Hx Diphtheria, Pertussis, Tetanus Vaccination: Yes - Unsure when Review of Systems - Review of Systems Constitutional: No symptoms reported EENT: No symptoms reported Cardiovascular: See HPI. denies: Chest pain Respiratory: No symptoms reported Gastrointestinal: No symptoms reported Genitourinary: No symptoms reported Female Genitourinary: No symptoms reported Musculoskeletal: No symptoms reported Skin: No symptoms reported Hematologic/Lymphatic: No symptoms reported Neurological/Psychological: See HPI, Seizure - possible. denies: Headaches -: Yes All other systems reviewed and negative Physical Exam - Vital signs Vitals: Resp BP Pulse Ox 13 138/101 H 93 09/07/19 06:43 09/07/19 06:43 09/07/19 06:43 - General General appearance: Alert Notes: Nonverbal - Replies to yes/no questions by shaking head. - HEENT Head: Normocephalic, Atraumatic Eyes: Normal Pupils: PERRL Ears: Normal External canal: Normal. No: Erythema Tympanic membrane: Bulging - bilateral. No: Perforation - Respiratory Respiratory status: No respiratory distress Chest status: Nontender Breath sounds: Normal Chest palpation: Normal - Cardiovascular Rhythm: Regular Heart sounds: Normal auscultation, S1 appreciated, S2 appreciated Murmur: No - Abdominal Inspection: Normal - Soft, Obese Distension: No distension Bowel sounds: Normal Tenderness: Nontender - Extremities General upper extremity: Normal inspection. No: Edema General lower extremity: Normal inspection. No: Edema - Neurological Cognition: Normal - Alert Orientation: AAOx4 Sensory: Normal Notes: Diminished gag reflex. Coordination and motor strength is intact. - Psychological Associated symptoms: Normal affect, Normal mood - Skin Skin Temperature: Warm Skin Moisture: Dry Skin Color: Normal Course - Re-evaluation Re-evalutation: 09/07/19 12:31 Patient resting comfortably not showing any signs of distress states she feels comfortable in the exam room. Patient has been given blankets for to keep her warm. Patient is not showing any signs of sepsis with any chills or sweats nausea vomiting or tachycardia. 09/07/19 14:18 Patient resting comfortably not showing any abnormal signs. No fever spikes - Vital Signs Vital signs: Temp Pulse Resp BP Pulse Ox 98.4 F 70 13 109/77 97 09/07/19 06:56 09/07/19 12:18 09/07/19 12:33 09/07/19 13:00 09/07/19 12:33 09/07/19 12:31 Vital signs stable 09/07/19 14:39 Patient's vital signs are stable her blood pressure at this point is 116/69 afebrile sats are 97% and a heart rate of 74. Pulse oximetry 96% - Laboratory Result Diagrams: 09/07/19 12:50 09/07/19 06:55 Laboratory results interpreted by me: 09/07/19 09/07/19 09/07/19 06:55 06:55 07:52 WBC Hgb Hct RDW 17.7 H Eos % (Auto) 7.9 H Est GFR (MDRD) Non-Af 59 L Lactic Acid 0.6 L Acetaminophen < 10 L 09/07/19 12:50 WBC 3.8 L Hgb 11.8 L Hct 34.6 L RDW 17.2 H Eos % (Auto) 8.5 H Est GFR (MDRD) Non-Af Lactic Acid Acetaminophen Lab results within normal limits lactic acid 0.6. Otherwise labs normal. 09/07/19 14:38 Repeat laboratories shows slight decrease in hemoglobin and white blood cell count most likely this is delusional from the IV fluids patient received while in the ED. - Diagnostic Test Radiology reviewed: Image reviewed, Reports reviewed Radiology results interpreted by me: 09/07/19 14:19 CT scan of chest with contrast shows no acute process no nodules no mass no i nfiltrates. CT scan of abdomen pelvis with IV contrast shows no acute process just chronic changes from before. Patient has had a cholecystectomy in the past. Discharge - Discharge Clinical Impression: New onset seizure Condition: Good Disposition: HOME, SELF-CARE Additional Instructions: Seizure You have had a seizure. Seizure disorders (epilepsy) of one sort or another affect about one out of 50 people. The seizure occurs because of abnorm al electrical activity in the brain. Seizures may be due to drugs and alcohol, strokes, brain injury, or infection. In the most common form of epilepsy, no cause can be found. You will require further evaluation to determine the cause of your seizure, and to determine whether anti-seizure medication is required. This follow-up testing is important, so please call us if you encounter problems with scheduling of tests or appointments. YOU SHOULD NOT DRIVE until released to do so by your physician. The law requires that seizures be reported to the driver operator's license bureau--a seizure w hile driving could be catastrophic. Call the doctor if seizures recur, or if you develop new symptoms such as fever, severe headache, stiff neck, confusion or increasing sleepiness, weakness or numbness, or visual problems. Today patient had a shaking episode during her sleep and awakening this a.m. noted by her . And patient was brought in by EMS because of her decreased arousal state after the seizure activity that lasted 45 seconds. At this point there is no clear evidence that patient had a seizure other than the history that was given of the shaking there was no tongue biting there was no urinary incontinence or defecation. However patient does have a strong family history of seizure activity. I explained to patient that a first-time seizure often is not committed to taking anticonvulsant medications. We do highly recommend that you follow-up with a neurologist for further evaluation work-up which would include an EEG to determine if there is any neurological focus for seizure disorder. We recommend you continue your same other medications that you are taking. There is no evidence of any infection found at this time or any metabolic derangement., And no cardiovascular event has occurred. Referrals: ALDA RODRIGUEZ, JOSEC [NO LOCAL MD] - Follow up as needed I personally performed the services described in the documentation, reviewed and edited the documentation which was dictated to the scribe in my presence, and it accurately records my words and actions.
[2019-09-07 15:01] VITALS: BP 106/66
--- NOTE | 2019-09-07 20:16 | EKG REPORT ---
SEVERITY:- BORDERLINE ECG - SINUS RHYTHM NONSPECIFIC ST-T CHANGES ANTEROSEPTAL, : Confirmed by: August Arevalo MD 07-Sep-2019 20:15:30
== END 2019-09-07 15:00 | disposition home or self-care (01) ==
LOC: ER 06:41
DX: R56.9 Unspecified convulsions (principal); Z90.49 Acquired absence of other specified parts of digestive tract; Z88.3 Allergy status to other anti-infective agents
CPT/HCPCS: 93005; 99285; 96361; 51702; 96374; 36415; 87040; 80307 ×3; 83605; 83690; 85025; 85610; 85730; 80053; 81001; 84484; 82803; 83880; 71045; 70450; 71260; 74177; 93010; J2060; J7030

== ENCOUNTER 2019-11-30 17:25 | Emergency (ER) | payer OTHER ==
[2019-11-30] MEDS ORDERED: ONDANSETRON HCL INJ/PF 4 MG/2 ML SDV IM ONE (17:54)
[2019-11-30] MEDS ORDERED: MORPHINE SULFATE 10 MG/ML INJ IM ONE (17:54)
--- NOTE | 2019-11-30 17:58 | ER Document Report ---
ED Medical Screen (RME) - General Chief Complaint: Post Surgical Pain Stated Complaint: POST SURGICAL PAIN Time Seen by Provider: 11/30/19 17:50 Notes: Patient is a 49-year-old female who presents emergency department with a chief complaint of abdominal pain and chest pain that radiates to her back. Patient had a reversal of her Jeovany-en-Y and EGD done today at Dr. Rangel's office. Patient has been vomiting. Patient has nausea medication, but has been "vomiting that up." Exam: Patient vomiting. Will give the patient pain medicine and nausea medication. X-rays and labs ordered. I have greeted and performed a rapid initial assessment of this patient. A comprehensive ED assessment and evaluation of the patient, analysis of test results and completion of medical decision making process will be conducted by an additional ED providers. TRAVEL OUTSIDE OF THE [place] IN LAST 30 DAYS: No - Related Data Allergies/Adverse Reactions: meperidine HCl [From Demerol] Allergy (Severe, Verified 01/03/18 14:03) Anaphylaxis clindamycin [Clindamycin] Allergy (Intermediate, Verified 01/03/18 14:03) Rash, swelling alcohol [From Mastisol Liquid Adhesive] Allergy (Verified 01/03/18 14:03) Urticaria gum mastic [From Mastisol Liquid Adhesive] Allergy (Verified 01/03/18 14:03) Urticaria methyl salicylate [From Mastisol Liquid Adhesive] Allergy (Verified 01/03/18 14:03) Urticaria storax [From Mastisol Liquid Adhesive] Allergy (Verified 01/03/18 14:03) Urticaria adhesive tape Adverse Reaction (Intermediate, Verified 01/03/18 14:03) ITCHING; BREAKS DOWN SKIN Past Medical History - Social History Chew tobacco use (# tins/day): No Frequency of alcohol use: None Drug Abuse: None - Past Medical History Cardiac Medical History: Denies: Hx Coronary Artery Disease, Hx Heart Attack, Hx Hypertension Pulmonary Medical History: Denies: Hx Asthma, Hx Bronchitis, Hx COPD, Hx Pneumonia Neurological Medical History: Denies: Hx Cerebrovascular Accident, Hx Seizures Renal/ Medical History: Denies: Hx Peritoneal Dialysis Musculoskeltal Medical History: Denies Hx Arthritis Psychiatric Medical History: Reports: Hx Anxiety, Hx Attention Deficit Hyperactivity Disorder Past Surgical History: Reports: Hx Abdominal Surgery - tummy tuck and revision of tummy tuck, Hx Section - x5, Hx Cholecystectomy, Hx Gastric Bypass Surgery - Laparoscopic gastric bypass with Jeovany-en-Y in 2002, Hx Herniorrhaphy, Hx Orthopedic Surgery - Lumbar fusion. Spinal stimulator 02/18/2015., Hx Tubal Ligation - Immunizations Hx Diphtheria, Pertussis, Tetanus Vaccination: Yes - Unsure when Physical Exam - Vital signs Vitals: Temp Pulse Resp BP Pulse Ox 99.8 F 77 24 H 122/98 H 99 11/30/19 17:43 11/30/19 17:43 11/30/19 17:43 11/30/19 17:43 11/30/19 17:43 Course - Vital Signs Vital signs: Temp Pulse Resp BP Pulse Ox 99.8 F 77 24 H 122/98 H 99 11/30/19 17:43 11/30/19 17:43 11/30/19 17:43 11/30/19 17:43 11/30/19 17:43
[2019-11-30 18:36] LABS: HEMATOCRIT 40.1 % (36.0-47.0); HEMOGLOBIN 13.4 g/dL (12.0-15.5); MEAN CORPUSCULAR HEMOGLOBIN 29.6 pg (27.0-33.4); MEAN CORPUSCULAR HGB CONC 33.4 g/dL (32.0-36.0); MEAN CORPUSCULAR VOLUME 89 fl (80-97); PLATELET COUNT 332 10^3/uL (150-450); RED BLOOD COUNT 4.53 10^6/uL (3.72-5.28); RED CELL DISTRIBUTION WIDTH 16.4 % (11.5-14.0); WHITE BLOOD COUNT 5.6 10^3/uL (4.0-10.5)
[2019-11-30 18:56] LABS: ABSOLUTE LYMPHOCYTES# (MANUAL) 0.2 10^3/uL (0.5-4.7); BASOPHILS % (MANUAL) 0 % (0-2); EOSINOPHILS % (MANUAL) 0 % (0-6); LYMPHOCYTES % (MANUAL) 4 % (13-45); MONOCYTES % (MANUAL) 0 % (3-13); SEGMENTED NEUTROPHILS % (MAN) 96 % (42-78); TOTAL CELLS COUNTED 100
[2019-11-30 18:57] LABS: ALBUMIN 3.9 g/dL (3.5-5.0); ALKALINE PHOSPHATASE 79 U/L (38-126); ANION GAP 6 (5-19); ANISOCYTOSIS 1+; ASPARTATE AMINO TRANSFERASE 23 U/L (14-36); BILIRUBIN,DIRECT 0.2 mg/dL (0.0-0.4); BILIRUBIN,TOTAL 0.5 mg/dL (0.2-1.3); BLOOD UREA NITROGEN 12 mg/dL (7-20); CARBON DIOXIDE 24 mmol/L (22-30); CHLORIDE 109 mmol/L (98-107); GLUCOSE 139 mg/dL (75-110); PLATELET COMMENT ADEQUATE; POTASSIUM 4.7 mmol/L (3.6-5.0); TOTAL PROTEIN 6.8 g/dL (6.3-8.2); TOXIC VACUOLATION PRESENT
--- NOTE | 2019-11-30 18:57 | RADIOLOGY REPORT (SQ) ---
EXAM DESCRIPTION: CHEST SINGLE VIEW IMAGES COMPLETED DATE/TIME: 11/30/2019 6:49 pm REASON FOR STUDY: s/p EGD; chest pain/back pain COMPARISON: None. EXAM PARAMETERS: NUMBER OF VIEWS: One view. TECHNIQUE: Single frontal radiographic view of the chest acquired. RADIATION DOSE: NA LIMITATIONS: None. FINDINGS: LUNGS AND PLEURA: No opacities, masses or pneumothorax. No pleural effusion. MEDIASTINUM AND HILAR STRUCTURES: There is no evidence of pneumomediastinum. There is no mediastinal widening. HEART AND VASCULAR STRUCTURES: Heart normal in size. Normal vasculature. BONES: No acute findings. HARDWARE: None in the chest. OTHER: No other significant finding. IMPRESSION: NO ACUTE RADIOGRAPHIC FINDING IN THE CHEST. TECHNICAL DOCUMENTATION: JOB ID: [id number] 2010 [employer]- All Rights Reserved Reading location - IP/workstation name: [email or web address]
[2019-11-30 19:01] LABS: OVALOCYTES 1+
--- NOTE | 2019-11-30 19:01 | RADIOLOGY REPORT (SQ) ---
EXAM DESCRIPTION: KUB/ABDOMEN (SINGLE VIEW) IMAGES COMPLETED DATE/TIME: 11/30/2019 6:49 pm REASON FOR STUDY: abdominal pain COMPARISON: 04/24/2015 NUMBER OF VIEWS: One view. TECHNIQUE: Supine radiographic image of the abdomen acquired. LIMITATIONS: None. FINDINGS: BOWEL GAS PATTERN: Normal bowel gas pattern. No dilated loops. CALCIFICATIONS: No suspicious calcifications. SOFT TISSUES: No gross mass or suggestion of organomegaly. HARDWARE: Spinal hardware. Tubal ligation clamps. BONES: No acute fracture. No worrisome bone lesions. OTHER: No other significant finding. IMPRESSION: NO RADIOGRAPHIC EVIDENCE FOR ACUTE ABDOMINAL DISEASE. TECHNICAL DOCUMENTATION: JOB ID: [id number] 2010 [employer]- All Rights Reserved Reading location - IP/workstation name: [email or web address]
[2019-11-30 19:02] LABS: SCHISTOCYTES SLIGHT
[2019-11-30 19:08] LABS: APPEARANCE,URINE CLEAR; BILIRUBIN,URINE NEGATIVE (NEGATIVE); COLOR,URINE YELLOW; GLUCOSE, URINE NEGATIVE (NEGATIVE); KETONES,URINE NEGATIVE (NEGATIVE); LEUKOCYTE ESTERASE,URINE NEGATIVE (NEGATIVE); NITRITE,URINE NEGATIVE (NEGATIVE); PROTEIN,URINE NEGATIVE (NEGATIVE); UROBILINOGEN,URINE NEGATIVE mg/dL (<2.0)
[2019-11-30] MEDS ORDERED: KETOROLAC TROMETHAMINE INJ/PF 30 MG/1 ML SDV IV ONE (20:17)
[2019-11-30] MEDS ORDERED: ONDANSETRON HCL INJ/PF 4 MG/2 ML SDV IV ONE ×2 (20:17→21:43)
[2019-11-30] MEDS ORDERED: METOCLOPRAMIDE HCL INJ/PF 10 MG/2 ML SDV IV ONE (20:19)
[2019-11-30] MEDS ORDERED: DIPHENHYDRAMINE HCL 50 MG/ML VIAL IV ONE (20:19)
[2019-11-30] MEDS ORDERED: NORMAL SALINE 1000 ML 1,000 ML IV ONE (21:43)
[2019-11-30] MEDS ORDERED: MORPHINE SULFATE 10 MG/ML INJ IV ONE (21:43)
--- NOTE | 2019-11-30 21:51 | ER Document Report ---
ED General - General Chief Complaint: Abdominal Pain Stated Complaint: POST SURGICAL PAIN Time Seen by Provider: 11/30/19 17:50 TRAVEL OUTSIDE OF THE [place] IN LAST 30 DAYS: No - HPI Context: This is a 49-year-old female with a history of gastric bypass surgery and reportedly multiple autoimmune disorders that is presenting with a chief complaint of abdominal pain and chest pain started after being seen by her bariatric surgeon earlier today. Patient states that she had a endoscopic revision of her Jeovany-en-Y and an EGD done today as well as some biopsies of tissue taken from her GI tract. Patient states that she started having abdominal pain on the way home after being released from the facility the CAT scan, that her abdominal pain has gotten worse and has been radiating up to her chest and she has also been vomiting. Patient states nothing alleviates the pain that she is having and any type of movement exacerbates the pain. Exacerbated by: Movement Relieved by: Other - Nothing - Related Data Allergies/Adverse Reactions: meperidine HCl [From Demerol] Allergy (Severe, Verified 01/03/18 14:03) Anaphylaxis clindamycin [Clindamycin] Allergy (Intermediate, Verified 01/03/18 14:03) Rash, swelling alcohol [From Mastisol Liquid Adhesive] Allergy (Verified 01/03/18 14:03) Urticaria gum mastic [From Mastisol Liquid Adhesive] Allergy (Verified 01/03/18 14:03) Urticaria methyl salicylate [From Mastisol Liquid Adhesive] Allergy (Verified 01/03/18 14:03) Urticaria storax [From Mastisol Liquid Adhesive] Allergy (Verified 01/03/18 14:03) Urticaria adhesive tape Adverse Reaction (Intermediate, Verified 01/03/18 14:03) ITCHING; BREAKS DOWN SKIN Past Medical History - General Information source: Patient - Social History Smoking Status: Unknown if Ever Smoked Chew tobacco use (# tins/day): No Frequency of alcohol use: None Drug Abuse: None Family History: Reviewed & Not Pertinent Patient has homicidal ideation: No - Past Medical History Cardiac Medical History: Denies: Hx Coronary Artery Disease, Hx Heart Attack, Hx Hypertension Pulmonary Medical History: Denies: Hx Asthma, Hx Bronchitis, Hx COPD, Hx Pneumonia Neurological Medical History: Denies: Hx Cerebrovascular Accident, Hx Seizures Renal/ Medical History: Denies: Hx Peritoneal Dialysis Musculoskeletal Medical History: Denies Hx Arthritis Psychiatric Medical History: Reports: Hx Anxiety, Hx Attention Deficit Hyperactivity Disorder Past Surgical History: Reports: Hx Abdominal Surgery - tummy tuck and revision of tummy tuck, Hx Section - x5, Hx Cholecystectomy, Hx Gastric Bypass Surgery - Laparoscopic gastric bypass with Jeovany-en-Y in 2002, Hx Herniorrhaphy, Hx Orthopedic Surgery - Lumbar fusion. Spinal stimulator 02/18/2015., Hx Tubal Ligation - Immunizations Hx Diphtheria, Pertussis, Tetanus Vaccination: Yes - Unsure when Review of Systems - Review of Systems Constitutional: No symptoms reported EENT: No symptoms reported Cardiovascular: Chest pain Respiratory: No symptoms reported Gastrointestinal: Abdominal pain, Nausea, Vomiting Genitourinary: No symptoms reported Female Genitourinary: No symptoms reported Musculoskeletal: No symptoms reported Skin: No symptoms reported Hematologic/Lymphatic: No symptoms reported Neurological/Psychological: No symptoms reported -: Yes All other systems reviewed and negative Physical Exam - Vital signs Vitals: Temp Pulse Resp BP Pulse Ox 99.8 F 77 24 H 122/98 H 99 11/30/19 17:43 11/30/19 17:43 11/30/19 17:43 11/30/19 17:43 11/30/19 17:43 - Notes Notes: CONSTITUTIONAL [Vital signs reviewed, Patient appears uncomfortable, Alert and oriented X 3, Normal stature.] HEAD [Atraumatic, Normocephalic.] EYES [Eyes are normal to inspection, No discharge from eyes, Extraocular muscles intact, Sclera are normal, Conjunctiva are normal.] NECK [Normal ROM, No jugular venous distention, No meningeal signs, no carotid bruit. ] RESPIRATORY CHEST [Chest is nontender, Breath sounds normal, No respiratory distress.] CARDIOVASCULAR [RRR, No murmurs, Normal S1 S2, No rub, No gallop.] ABDOMEN [Abdomen is mildly tender to light palpation in left upper quadrant, No pulsatile masses, No other masses, Bowel sounds quiet, No distension, No peritoneal signs, No hernias.] BACK [There is no CVA Tenderness, There is no tenderness to palpation, Normal inspection.] UPPER EXTREMITY [Inspection normal, No cyanosis, No clubbing, No edema, 2+ radial pulses.] LOWER EXTREMITY [Inspection normal, No cyanosis, No clubbing, No edema, No calf tenderness, 2+ femoral pulses.] NEURO [No focal motor deficits, No focal sensory deficits, Speech normal.] SKIN [Skin is warm, Skin is dry, + pallor.] LYMPHATIC [No adenopathy in neck.] PSYCHIATRIC [Normal affect. ] Course - Re-evaluation Re-evalutation: 11/30/19 23:24 Patient states she is feeling nauseated again. Patient appears to be feeling somewhat better and her color is improved and she seems less restless. Patient is willing to try some Phenergan but only food is given IM. Patient states she cannot tolerate IV Phenergan. 12/01/19 01:24 Patient states she is feeling better at this time. Results of the ED MSE discussed with patient and patient's mother. All questions were answered prior to discharge. Emergency signs and symptoms, reasons to return to the emergency department discussed with patient and patient's mother. - Vital Signs Vital signs: Temp Pulse Resp BP Pulse Ox 99.8 F 77 20 120/69 90 L 11/30/19 17:43 11/30/19 17:43 12/01/19 00:31 12/01/19 00:31 12/01/19 00:31 - Laboratory Result Diagrams: 11/30/19 18:21 11/30/19 18:21 Laboratory results interpreted by me: 11/30/19 11/30/19 18:21 18:21 RDW 16.4 H Seg Neuts % (Manual) 96 H Lymphocytes % (Manual) 4 L Monocytes % (Manual) 0 L Abs Lymphs (Manual) 0.2 L Abs Monocytes (Manual) 0.0 L Chloride 109 H Glucose 139 H - EKG Interpretation by Me Additional EKG results interpreted by me: 11/30/19 22:07 EKG obtained on 11/30/2019 at 2100 hrs. was interpreted by this MD. Findings sinus bradycardia, heart rate 59, normal axis, normal LA interval, P waves preceding QRS complexes, QRS complexes appear narrow, normal QT interval, there are no obvious patterns of ST segment elevation or depression present to suggest acute myocardial ischemia or infarction. No prior EKGs immediately available for comparison. Impression: Sinus bradycardia with nonspecific ST segments. - Consults Dr Rangel, pt's bariatric surgeon Time consulted: 21:52 - He agreed with plan to try supportive measures including some diazepam and Dilaudid. This MD informed Dr. Rangel that if symptoms could not be controlled, this MD went contacted to make him aware. He also recommended 10 mg iv decadron to help with nausea Reason for consultation: 11/30/19 22:05 post op abdominal pain and vomiting Discharge - Discharge Clinical Impression: Post-operative pain Condition: Stable Disposition: HOME, SELF-CARE Additional Instructions: Return to the Emergency Department without delay if any worse. Follow up with Dr. Rangel on 12/03/2019. HOME CARE INSTRUCTIONS & INFORMATION: Thank you for choosing us for your premier health needs. We hope you're satisfied with the care you received. After you leave, you must properly care for your problem and, at the same time, observe its progress. Any condition can change. Some illnesses can change rapidly over hours or days. If your condition worsens, return to the Emergency Department or see your physician promptly. ABOUT YOUR X-RAYS AND EKG'S: If you had an EKG or X-rays taken, they have been read by the Emergency Physician. The X-rays and EKG's will also be read by a Radiologist or Offset Pressman within 24 hours. If discrepancies are noted, you will be notified by telephone. Please be certain the ED has a correct telephone number & address where you can be reached. Also, realize that some fractures or abnormalities do not show up on initial X-rays. If your symptoms continue, see your physician. ABOUT YOUR LABORATORY TEST: If you had laboratory tests, the results have been reviewed by the Emergency Physician. Some test results (for example cultures) may not be available for several days. You will be contacted if any test result shows you need additional treatment. Please be certain the ED has a correct telephone number and address where you can be reached. ABOUT YOUR MEDICATIONS: You will receive instructions on how to take your medicine on the prescription label you receive. Additional information may be provided by the Pharmacy. If you have questions afterwards, call the ED for clarification or further instructions. Some prescribed medications may cause drowsiness. Do not perform tasks such as driving a car or operating machinery without consulting your Pharmacist. If you feel you need a refill of pain medication, your condition will need re-evaluation. Please do not call for a refill of any medication. ABOUT YOUR SIGNATURE: Signature of this document acknowledges to followin. Understanding that you received emergency treatment and that you may be released before al medical problems are known or treated. Please be certain the ED has a correct phone number & address where you can be reached. 2. Acknowledgement that you will arrange for follow-up care as recommended. 3. Authorization for the Emergency Physician to provide information to your follow-up Physician in order to maximize your care. AT ANY TIME, IF YOUR SYMPTOMS CHANGE SIGNIFICANTLY OR WORSEN OR YOU DEVELOP NEW SYMPTOMS, RETURN TO THE EMERGENCY DEPARTMENT IMMEDIATELY FOR RE-EVALUATION. OUR GOAL IS TO PROVIDE EXCELLENT MEDICAL CARE! WE HOPE THAT WE HAVE MET YOUR EXPECTATIONS DURING YOUR EMERGENCY DEPARTMENT VISIT AND THAT YOU FEEL YOU HAVE RECEIVED EXCELLENT CARE!
[2019-11-30] MEDS ORDERED: HYDROMORPHONE HCL INJ/PF 2 MG/ML AMPULE IV ONE (22:03)
[2019-11-30] MEDS ORDERED: DIAZEPAM INJ 10 MG/2 ML DISP.SYRIN IV ONE (22:04)
[2019-11-30] MEDS ORDERED: DEXAMETHASONE SOD PHOS INJ 10 MG/1 ML VIAL IV ONE (22:09)
[2019-11-30] MEDS ORDERED: PROMETHAZINE HCL INJ 25 MG/1 ML VIAL IM ONE (23:25)
[2019-12-01] MEDS ORDERED: ONDANSETRON HCL INJ/PF 4 MG/2 ML SDV IV ONE (00:11)
[2019-12-01] MEDS ORDERED: HYDROMORPHONE HCL INJ/PF 2 MG/ML AMPULE IV ONE ×2 (00:11→01:23)
[2019-12-01] MEDS ORDERED: ONDANSETRON ODT 4 MG TAB (6 TAB/ER DISP) PO PRN (01:23)
[2019-12-01] MEDS ORDERED: DIAZEPAM INJ 10 MG/2 ML DISP.SYRIN IV ONE (01:23)
[2019-12-01 01:51] VITALS: BP 115/73
--- NOTE | 2019-12-03 02:30 | EKG REPORT ---
SEVERITY:- NORMAL ECG - SINUS RHYTHM : Confirmed by: Darrell Trinidad MD 03-Dec-2019 02:29:56
== END 2019-12-01 01:50 | disposition home or self-care (01) ==
LOC: ER 17:25
DX: G89.18 Other acute postprocedural pain (principal); R10.9 Unspecified abdominal pain; R10.812 Left upper quadrant abdominal tenderness; R07.9 Chest pain, unspecified; R11.2 Nausea with vomiting, unspecified; R00.1 Bradycardia, unspecified; Z98.84 Bariatric surgery status; Z87.892 Personal history of anaphylaxis; Z88.6 Allergy status to analgesic agent; Z88.5 Allergy status to narcotic agent; Z88.1 Allergy status to other antibiotic agents
CPT/HCPCS: 93005; 96376; 99285; 96361; 96374; 96375; 36415; 83690; 84703; 85025; 80053; 81001; 84484; 71045; 74018; 93010; J3360 ×2; J1200; J2765; J2270; J1170 ×2; J2550; J2405 ×2; J7030; J1100